=== PATIENT | male | born 1985 | race Hispanic/Latino ===

== ENCOUNTER 2016-05-02 10:09 | Emergency (ER) | payer OTHER ==
--- NOTE | 2016-05-02 11:07 | RADIOLOGY REPORT ---
EXAMINATION: XR SHOULDER, LEFT CLINICAL INFORMATION: Left shoulder pain status post injury walking down stairs. COMPARISON: None TECHNIQUE: AP external rotation, Grashey, scapular Y, and axillary views of the left shoulder. FINDINGS: No fracture or dislocation. The glenohumeral joint is appropriately aligned and unremarkable. The acromioclavicular joint is intact. The visualized lung is clear. IMPRESSION: Normal left shoulder.
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
[2016-05-02] MEDS ORDERED: OXYCODONE HCL15 M1 PO (11:26)
[2016-05-02] MEDS ORDERED: KETOROLAC TROME10 M1 PO (11:42)
[2016-05-02] MEDS ORDERED: CYCLOBENZAPRINE10 M1 PO (11:42)
[2016-05-02 11:56] VITALS: BP 136/78
== END 2016-05-02 11:56 ==
LOC: ERH 10:09
DX: M25.512 Pain in left shoulder (principal)
CPT/HCPCS: 73030-LT; J1885

== ENCOUNTER 2016-07-01 16:25 | Emergency (ER) | payer OTHER ==
[~2016-07-01] VITALS: Ht 190.5 cm; Wt 104.3 kg
[~2016-07-01 16:25] MED LIST: CYCLOBENZAPRINE10 M1 PO; KETOROLAC TROME10 M1 PO; OXYCODONE HCL15 M1 PO
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
[2016-07-01 17:36] LABS: ABSOLUTE BASOPHIL COUNT 0 /CUMM (0.0-0.2); ABSOLUTE EOSINOPHIL COUNT 0.2 /CUMM (0.0-0.7); ABSOLUTE GRANULOCYTE CT 5.9 /CUMM (1.4-6.5); ABSOLUTE LYMPH COUNT 2.6 /CUMM (1.2-3.4); BASOPHIL % 0.3 % (0.0-2.0); EOSINOPHIL % 1.6 % (0-5); GRANULOCYTE % 60.9 % (42.2-75.2); HEMATOCRIT 44.1 % (42-52); MEAN CORPUSCULAR HGB 30.2 PG (27.0-31.0); MEAN CORPUSCULAR HGB CONC 33.8 G/DL (33.0-37.0); MEAN CORPUSCULAR VOLUME 89.2 FL (80.0-94.0); MEAN PLATELET VOLUME 9.1 FL (7.4-10.4); PLATELET COUNT 147 /CUMM (130-400); RBC DISTRIBUTION WIDTH 12.8 % (11.5-14.5); RED BLOOD CELL CT 4.94 /CUMM (4.70-6.10); WHITE BLOOD CELL COUNT 9.7 /CUMM (4.8-10.8)
[2016-07-01] MEDS ORDERED: PANTOPRAZOLE SO40 M1 PO (17:54)
--- NOTE | 2016-07-01 18:48 | CT SCAN REPORT ---
EXAMINATION: CT ABDOMEN AND PELVIS WITHOUT CONTRAST CLINICAL INFORMATION: Left-sided flank pain. COMPARISON: Prior abdominal CT from 02/02/2011. TECHNIQUE: Multidetector volumetric imaging was performed from the superior aspect of the liver through the pubic symphysis. Sagittal and coronal reformatted images were obtained on the technologist's workstation. DLP: 430.2 mGy-cm FINDINGS: The lung bases are clear. There are no pleural effusions noted. The unenhanced liver, spleen, pancreas, and gallbladder appear normal. The adrenal glands are symmetric in appearance. There is no hydronephrosis. A punctate calculus is noted in the interpolar region of the right kidney. No perinephric stranding is seen. No obstructing ureteral calculus is identified. The bladder is partially distended without retained calculi or wall thickening. The prostate gland and seminal vesicles appear normal. There is no evidence of bowel obstruction. No pericolonic inflammatory changes or diverticular disease is seen. The appendix is normal. No free air or free fluid is seen. No acute osseous abnormality is identified. No abdominal wall hernia is visible. There is no retroperitoneal adenopathy. The abdominal aorta is normal in caliber. The imaged bony pelvis appears normal. IMPRESSION: No acute intra-abdominal or pelvic pathology to explain the patient's presenting symptoms. Punctate calculus in the interpolar region of the right kidney. No hydronephrosis or obstructing ureteral calculus.
[2016-07-01 19:15] VITALS: BP 124/59
== END 2016-07-01 19:35 ==
LOC: ERH 16:25
PROVIDERS: Emergency Medicine
DX: R10.32 Left lower quadrant pain (principal)
CPT/HCPCS: 74176; 81003; 96374; 96375; J1885; J2405